=== PATIENT | male | born 1965 | race African-American/Black ===

== ENCOUNTER → 2016-06-21 | Outpatient (CLI) | payer OTHER ==
--- NOTE | 2016-06-21 17:13 | DI ---
Indication: ITS.REASON: DX TESTING PROCEDURE: KNEE LEFT 2 VIEW: Encounter: Initial Comparison: None Findings: There is no acute fracture, dislocation or malalignment identified. Joint spaces are normal. No joint effusion. Impression: No acute osseous abnormality. .
--- NOTE | 2016-06-21 17:15 | DI ---
Indication: ITS.REASON: DX TESTING PROCEDURE: KNEE RIGHT 2 VIEW: Encounter: Initial Comparison: None Findings: There is no acute fracture, dislocation or malalignment identified. Joint spaces are within normal limits. No joint effusion. Impression: No acute osseous abnormality. .
== END ==
LOC: IMA 16:35
DX: Z02.9 Encounter for administrative examinations, unspecified (principal)